=== PATIENT | female | born 1960 ===

== ENCOUNTER 2017-09-22 07:30 | Outpatient (CLI) | payer OTHER ==
[~2017-09-22] VITALS: Ht 152.4 cm; Wt 66.2 kg
== END 2017-09-22 07:45 | disposition home or self-care (01) ==
LOC: OFIC 805 07:30
DX: J34.2 Deviated nasal septum (principal); J31.0 Chronic rhinitis; H90.72 Mixed conductive and sensorineural hearing loss, unilateral, left ear, with unrestricted hearing on the contralateral side; H61.22 Impacted cerumen, left ear; H69.82 Other specified disorders of Eustachian tube, left ear; H92.02 Otalgia, left ear; H70.12 Chronic mastoiditis, left ear

== ENCOUNTER 2017-09-22 09:19 | Outpatient (CLI) | payer OTHER | END 2017-09-22 09:43 | disposition home or self-care (01) | LOC: TOM 09:19 | DX: H70.12 Chronic mastoiditis, left ear (principal); H90.72 Mixed conductive and sensorineural hearing loss, unilateral, left ear, with unrestricted hearing on the contralateral side ==

== ENCOUNTER 2017-10-06 07:31 | Outpatient (CLI) | payer OTHER ==
[~2017-10-06] VITALS: Ht 152.4 cm; Wt 66.2 kg
== END 2017-10-06 07:45 | disposition home or self-care (01) ==
LOC: OFIC 805 07:31
DX: H69.82 Other specified disorders of Eustachian tube, left ear (principal); H90.72 Mixed conductive and sensorineural hearing loss, unilateral, left ear, with unrestricted hearing on the contralateral side